=== PATIENT | female | born 1990 | race African-American/Black ===

== ENCOUNTER 2023-06-26 04:52 | Emergency (ER) | payer MEDICARE ==
[~2023-06-26] VITALS: Ht 172.7 cm; Wt 65.0 kg
[2023-06-26 04:54] VITALS: O2SAT 100
[2023-06-26] MEDS ORDERED: ACETAMINOPHEN 325MG TABLET PO ONE (06:15)
[2023-06-26] MEDS ORDERED: IBUP-1523 MT (07:25)
[2023-06-26] MEDS ORDERED: TOPUD MT (07:25)
[2023-06-26 08:12] VITALS: BP 130/82; PULSE 99; RESP 16; TEMP 98.4
== END 2023-06-26 08:15 | disposition home or self-care (01) ==
LOC: ER 04:52
DX: R51.9 Headache, unspecified (principal); R07.81 Pleurodynia; Y04.0XXA Assault by unarmed brawl or fight, initial encounter; Y93.89 Activity, other specified; Y92.89 Other specified places as the place of occurrence of the external cause; Y99.8 Other external cause status
CPT/HCPCS: 71045; 81025; 99283

== ENCOUNTER 2023-06-28 14:30 | Emergency (ER) | payer MEDICARE ==
[~2023-06-28] VITALS: Ht 177.8 cm; Wt 64.0 kg
[~2023-06-28 14:30] MED LIST: IBUP-1523 MT; TOPUD MT
[2023-06-28 14:43] VITALS: BP 136/94; PULSE 88; RESP 16; TEMP 98; O2SAT 97
[2023-06-28] MEDS ORDERED: IBUP-2029 MT (17:49)
== END 2023-06-28 18:19 | disposition home or self-care (01) ==
LOC: ER 14:30
DX: S02.2XXA Fracture of nasal bones, initial encounter for closed fracture (principal); X58.XXXA Exposure to other specified factors, initial encounter; Y93.89 Activity, other specified; Y92.89 Other specified places as the place of occurrence of the external cause; Y99.8 Other external cause status
CPT/HCPCS: 70486; 81025; 99284

== ENCOUNTER 2023-08-14 08:51 | Emergency (ER) | payer MEDICARE ==
[~2023-08-14] VITALS: Ht 167.6 cm; Wt 62.0 kg
[~2023-08-14 08:51] MED LIST changes: +IBUP-2029 MT
[2023-08-14 08:52] VITALS: BP 130/92; O2SAT 98
[2023-08-14] MEDS ORDERED: ACETAMINOPHEN 325MG TABLET PO ONE (09:30)
[2023-08-14] MEDS ORDERED: TOPUD MT (11:04)
[2023-08-14 12:07] VITALS: PULSE 86; RESP 14; TEMP 98.5
== END 2023-08-14 12:07 | disposition home or self-care (01) ==
LOC: ER 08:51
DX: R51.9 Headache, unspecified (principal); Z88.2 Allergy status to sulfonamides; Y08.89XA Assault by other specified means, initial encounter; Y93.89 Activity, other specified; Y92.89 Other specified places as the place of occurrence of the external cause; Y99.8 Other external cause status
CPT/HCPCS: 70486; 81025; 99284